=== PATIENT | female | born 1980 | race Two or more races ===

== ENCOUNTER 2018-09-15 18:14 | Emergency (ER) | payer OTHER ==
[~2018-09-15] VITALS: Ht 154.9 cm; Wt 79.4 kg
[2018-09-15 18:27] VITALS: Ht 154.9 cm; Wt 79.4 kg
[2018-09-16] VITALS: BP 230/89
== END 2018-09-16 | disposition home or self-care (01) ==
LOC: ED 18:14
DX: S46.911A Strain of unspecified muscle, fascia and tendon at shoulder and upper arm level, right arm, initial encounter (principal); Q90.9 Down syndrome, unspecified; X58.XXXA Exposure to other specified factors, initial encounter; Y93.89 Activity, other specified; Y92.89 Other specified places as the place of occurrence of the external cause; Y99.8 Other external cause status
CPT/HCPCS: Q0092